=== PATIENT | male | born 1975 | race American Indian/Alaskan Native ===

== ENCOUNTER 2021-11-16 13:39 | Emergency (ER) | payer SELFPAY ==
[2021-11-16 13:47] VITALS: BP 154/90
--- NOTE | 2021-11-16 15:05 | XRay Report ---
CHEST 2 VIEWS INDICATION / CLINICAL INFORMATION: Chest Pain. COMPARISON: None available. FINDINGS: SUPPORT DEVICES: None. HEART / MEDIASTINUM: No significant abnormality. LUNGS / PLEURA: No significant pulmonary or pleural abnormality. No pneumothorax. ADDITIONAL FINDINGS: No significant additional findings. IMPRESSION: 1. No acute findings. Signer Name: Syed Madrid MD Signed: 11/16/2021 3:00 PM Workstation Name: [id number]
--- NOTE | 2021-11-16 15:21 | Emergency Department Report ---
ED General Adult HPI - General Chief complaint: Chest Pain Stated complaint: CHEST PAIN x4 DAYS Source: patient Mode of arrival: Ambulatory Limitations: No Limitations - History of Present Illness Initial comments: 46-year-old male presents to the ED complaining chest pain x4 days. Patient states that he has been smoking marijuana . Denies using any other type of drug. Patient states that he has taken an aspirin. Patient denies any chest pain at present time. States that he came to the hospital to get a checkup chest pain. Patient is alert and oriented x3. No acute distress noted no ill appearance no. Denies any fever chills or abdominal pain. Severity scale (0 -10): 10 - Related Data Home Medications Medication Instructions Recorded Confirmed Last Taken No Known Home Medications [No 11/16/21 11/16/21 Unknown Reported Home Medications] Allergies Allergy/AdvReac Type Severity Reaction Status Date / Time No Known Allergies Allergy Verified 11/16/21 13:45 ED Review of Systems ROS: Stated complaint: CHEST PAIN x4 DAYS Other details as noted in HPI ED Past Medical Hx - Past Medical History Previous Medical History?: Yes Hx Asthma: Yes - Surgical History Past Surgical History?: No - Social History Smoking Status: Current Every Day Smoker Substance Use Type: Marijuana - Medications Home Medications: Home Medications Medication Instructions Recorded Confirmed Last Taken Type No Known Home Medications [No 11/16/21 11/16/21 Unknown History Reported Home Medications] ED Physical Exam - General Limitations: No Limitations ED Course Vital Signs 11/16/21 13:45 Temperature 98.8 F Pulse Rate 70 Respiratory 18 Rate Blood Pressure 154/90 [Right] O2 Sat by Pulse 98 Oximetry ED Medical Decision Making - Lab Data Result diagrams: 11/16/21 15:24 11/16/21 15:24 - Radiology Data [facility] [address] [place] [address] XRay Report Signed Patient: GABBY GLYNN MR#: [id number] : 1975 Acct:[id number] Age/Sex: 46 / M ADM Date: 11/16/21 Loc: ED Attending Dr: Ordering Physician: FATUMA GUZMAN Date of Service: 11/16/21 Procedure(s): XR chest routine 2V Accession Number(s): [id number] cc: FATUMA GUZMAN Fluoro Time In Minutes: CHEST 2 VIEWS INDICATION / CLINICAL INFORMATION: Chest Pain. COMPARISON: None available. FINDINGS: SUPPORT DEVICES: None. HEART / MEDIASTINUM: No significant abnormality. LUNGS / PLEURA: No significant pulmonary or pleural abnormality. No pneumothorax. ADDITIONAL FINDINGS: No significant additional findings. IMPRESSION: 1. No acute findings. Signer Name: Syed Madrid MD Signed: 11/16/2021 3:00 PM Workstation Name: [id number] Transcribed By: TL Dictated By: Syed Madrid MD Electronically Authenticated By: Syed Madrid MD Signed Date/Time: 11/16/211499 DD/ 99 TD/TT: - Medical Decision Making 46-year-old male presents to the ED complaining chest pain x4 days. Patient states that he has been smoking marijuana . Denies using any other type of drug. Patient states that he has taken an aspirin. Patient denies any chest pain at present time. States that he came to the hospital to get a checkup chest pain. Patient is alert and oriented x3. No acute distress noted no ill appearance no. Denies any fever chills or abdominal pain. Patient unremarkable. Marijuana smell noted to patient. Two-view chest x-ray showed no abnormality. Rechecked the patient is resting quietly quietly and comfortable and feeling better. I discussed the results of diagnostic study, my clinical impression and the plan for further treatment with the patient. Patient agrees with plan and discharge at this present time. All question addressed. I have given the patient instruction regarding a diagnosis ,expectation ,follow- up and return precaution. I explained to the patient that emergent condition may arise and to return to the ED for new worsen and any new persisting condition. I have explained the importance of following up with the primary care physician or referral physician listed below has instructed. The patient verbalized understanding of discharge instruction. Abnormal Lab Results 11/16/21 11/16/21 11/16/21 15:24 15:24 15:24 WBC 5.4 RBC 4.29 Hgb 13.4 Hct 41.2 MCV 96 H MCH 31 MCHC 33 RDW 13.6 Plt Count 273 Lymph % (Auto) [employer] Crew Scheduler [place] % (Auto) Flight Crew Scheduler Eos % (Auto) Flight Crew Scheduler Baso % (Auto) Flight Crew Scheduler Lymph # (Auto) Flight Crew Scheduler [place] # (Auto) Flight Crew Scheduler Eos # (Auto) Flight Crew Scheduler Baso # (Auto) Flight Crew Scheduler Seg Neutrophils % Flight Crew Scheduler Seg Neutrophils # Flight Crew Scheduler Sodium 139 Potassium 4.1 Chloride 104.8 Carbon Dioxide 26 Anion Gap 12 BUN 10 Creatinine 0.9 Estimated GFR > 60 BUN/Creatinine Ratio 11 Glucose 93 Calcium 8.7 Total Bilirubin 0.70 AST 15 ALT 10 Alkaline Phosphatase 50 Troponin T < 0.010 Total Protein 7.0 Albumin 4.0 Albumin/Globulin Ratio 1.3 Critical care attestation.: If time is entered above; I have spent that time in minutes in the direct care of this critically ill patient, excluding procedure time. ED Disposition Clinical Impression: Chest pain Qualifiers: Chest pain type: unspecified Qualified Code(s): R07.9 - Chest pain, unspecified Disposition: 01 HOME / SELF CARE / HOMELESS Is pt being admited?: No Does the pt Need Aspirin: No Condition: Stable Instructions: Nonspecific Chest Pain, Adult Additional Instructions: Follow-up with primary care doctor as needed Follow-up [facility] Stop using marijuana Referrals: REGIS REYNOSO MD [Primary Care Provider] - 3-5 Days [facility] [Provider Group] - 3-5 Days Forms: Work/School Release Form(ED)
[2021-11-16 15:59] LABS: Hematocrit 41.2 % (35.5-45.6); Hemoglobin 13.4 gm/dl (11.8-15.2); Mean Corpuscular HGB Conc 33 % (32-34); Mean Corpuscular Volume 96 fl (84-94); Platelet Count 273 K/mm3 (140-440); Red Blood Count 4.29 M/mm3 (3.65-5.03); Red Cell Distribution Width 13.6 % (13.2-15.2)
[2021-11-16 16:03] LABS: Alanine Aminotransferase 10 units/L (7-56); BUN/Creatinine Ratio 11; Blood Urea Nitrogen 10 mg/dL (9-20); Calcium 8.7 mg/dL (8.4-10.2); Hemolysis Index 11
--- NOTE | 2021-11-17 15:11 | Electrocardiograph Report ---
[facility] Test Date: 2021-11-16 Test Time: 13:44:19 Pat Name: GABBY GLYNN Department: Room: Gender: M News Specialist: GAGAN : 1975 Requested By: VANDANA RHODES Order Number: [id number] Reading MD: Eric Samano Measurements Intervals [place] Rate: 55 P: 58 FL: 166 QRS: 7 QRSD: 103 T: 33 QT: 407 QTc: 389 Interpretive Statements Sinus rhythm,,BAL ST elev, probable normal early repol pattern No previous ECG available for comparison Electronically Signed On 11-17-2021 15:11:07 EDT by Eric Samano
== END 2021-11-16 16:43 | disposition home or self-care (01) ==
LOC: ED 13:39
DX: R07.89 Other chest pain (principal); J45.909 Unspecified asthma, uncomplicated; F17.200 Nicotine dependence, unspecified, uncomplicated; F12.90 Cannabis use, unspecified, uncomplicated; Z79.899 Other long term (current) drug therapy
CPT/HCPCS: 36415; 71046; 80053; 84484; 85025; 93005; 99283